=== PATIENT | female | born 1965 | race Caucasian/White ===

== ENCOUNTER → 2017-12-26 | Outpatient (CLI) | payer BC | LOC: LAB 18:05 → LAB SHORT 18:05 | DX: R82.90 Unspecified abnormal findings in urine (principal) | CPT/HCPCS: 87077; 87086; 87186 ==

== ENCOUNTER → 2018-01-07 | Outpatient (CLI) | payer BC | END | disposition home or self-care (01) | LOC: LAB SHORT 13:27 → LAB 13:27 | DX: N30.10 Interstitial cystitis (chronic) without hematuria (principal); R82.90 Unspecified abnormal findings in urine | CPT/HCPCS: 87086 ==

== ENCOUNTER → 2018-01-24 | Outpatient (CLI) | payer BC | LOC: LAB SHORT 16:46 → LAB 16:46 | DX: R39.15 Urgency of urination (principal) | CPT/HCPCS: 87077; 87086; 87186 ==

== ENCOUNTER → 2018-02-19 | Outpatient (CLI) | payer BC ==
[2018-02-19 09:57] LABS: Source, Urine Clean Catch
[2018-02-19 13:09] LABS: Bilirubin, Urine Neg (Neg); Blood, Urine Neg (Neg); Glucose Qualitative, Urine Neg (Neg); Ketones, Urine Neg (Neg); Leukocyte Esterase, Urine Neg (Neg); Nitrite, Urine Neg (Neg); Protein, Urine Neg (Neg); Specific Gravity, Urine 1.005 (1.003-1.022); Urobilinogen, Urine NORM (Normal)
[2018-02-19 13:25] LABS: Appearance, Urine Clear (Clear); Color, Urine Yellow (P-Yellow)
== END | disposition home or self-care (01) ==
LOC: LAB 09:46 → LAB SHORT 09:46
PROVIDERS: Obstetrics & Gynecology
DX: R33.9 Retention of urine, unspecified (principal)
CPT/HCPCS: 81003

== ENCOUNTER → 2019-02-10 | Outpatient (CLI) | payer BC ==
[2019-02-12 13:07] LABS: HPV 16 Negative (Negative); HPV 18 Negative (Negative); HPV OTHER HR TYPES Negative (Negative)
== END | disposition home or self-care (01) ==
LOC: LAB SHORT 11:47 → LAB 11:47
PROVIDERS: Obstetrics & Gynecology
DX: Z01.419 Encounter for gynecological examination (general) (routine) without abnormal findings (principal)
CPT/HCPCS: 87624; G0123

== ENCOUNTER → 2019-03-17 | Outpatient (CLI) | payer BC | END | disposition home or self-care (01) | LOC: LAB SHORT 18:21 → LAB 18:21 | DX: R39.15 Urgency of urination (principal); R33.9 Retention of urine, unspecified | CPT/HCPCS: 87086 ==

== ENCOUNTER → 2019-03-24 | Outpatient (CLI) | payer BC ==
[2019-03-24 18:20] LABS: Appearance, Urine Clear (Clear); Bilirubin, Urine Neg (Neg); Blood, Urine Neg (Neg); Color, Urine Yellow (P-Yellow); Glucose Qualitative, Urine Neg (Neg); Ketones, Urine Neg (Neg); Leukocyte Esterase, Urine Neg (Neg); Nitrite, Urine Neg (Neg); Protein, Urine Neg (Neg); Urobilinogen, Urine NORM (Normal)
== END | disposition home or self-care (01) ==
LOC: LAB SRC 14:50 → LAB SHORT 14:50
PROVIDERS: Registered Nurse
DX: R33.9 Retention of urine, unspecified (principal); R30.0 Dysuria
CPT/HCPCS: 81003

== ENCOUNTER → 2021-07-28 | Outpatient (CLI) | payer BC | END | disposition home or self-care (01) | LOC: LAB SHORT 11:35 | DX: N30.90 Cystitis, unspecified without hematuria (principal) | CPT/HCPCS: 87077; 87086; 87186 ==

== ENCOUNTER → 2021-08-03 | Outpatient (CLI) | payer BC | END | disposition home or self-care (01) | LOC: LAB 14:29 → LAB SHORT 14:29 | DX: R30.0 Dysuria (principal) | CPT/HCPCS: 87086 ==

== ENCOUNTER 2021-12-26 07:20 | Day surgery (SDC) | payer BC ==
[~2021-12-26] VITALS: Ht 160 cm; Wt 73.8 kg
[2021-12-26] MEDS ORDERED: ALGAL OMEGA-3200 MG PO (07:58)
[2021-12-26] MEDS ORDERED: METF500 PO (07:59)
[2021-12-26] MEDS ORDERED: THYROID PO ×2 (07:59→08:00)
[2021-12-26] MEDS ORDERED: Ventolin/Prove6.7 GM INH (08:00)
--- NOTE | 2021-12-26 11:11 | NUR ---
PT BROUGHT BACK FROM PROCEDURE TO RECOVERY ROOM VIA RECLINER, TR BAND ON RIGHT WRIST, AIR IN, ARM BOARD FOR SUPPORT. SITE SOFT NON TENDER WITH NO ACTIVE BLEEDING, OOZING, OR PAIN. PT AOX4, TOLERATED PO FLUIDS WITH NO DIFFICULTIES. VSS. CALL LIGHT IN REACH. WILL CONTINUE TO MONITOR.
--- NOTE | 2021-12-26 12:44 | NUR ---
TR BAND FULLY DEFLATED, SITE SOFT NON TENDER WITH NO BLEEDING OR OOZING NOTED. AMBULATED TO RESTROOM WITH STEADY GAIT. NO CHEST PAIN OR SOB. GETS DRESSED WITH NO NEEDED ASSISTANCE. VERBALIZED UNDERSTANDING OF D/C INSTRUCTIONS. PAPERWORK PLACED IN FOLDER TO TAKE HOME.
--- NOTE | 2021-12-26 13:05 | NUR ---
TR BAND REMOVED AND SITE CLEANSED. R RADIAL SITE STABLE, CLOTH DOT PLACED AND ARM BOARD PLACED. PT INSTRUCTED TO LEAVE ARMBOARD IN PLACE FOR 2 DAYS. PT R ARM PLACED IN A SLING. SALINE LOCK REMOVED WITH CATHETER INTACT. PT TO PRIVATE VEHICLE PER W/C.
== END 2021-12-26 13:00 | disposition home or self-care (01) ==
LOC: MHTC 07:20
DX: I20.9 Angina pectoris, unspecified (principal); R94.39 Abnormal result of other cardiovascular function study; R06.00 Dyspnea, unspecified; R42 Dizziness and giddiness; E03.9 Hypothyroidism, unspecified; E11.9 Type 2 diabetes mellitus without complications; E78.5 Hyperlipidemia, unspecified; Z88.8 Allergy status to other drugs, medicaments and biological substances; Z87.891 Personal history of nicotine dependence
CPT/HCPCS: 76937; 93454; 99152; C1769; C1887; C1894; J1644; J2250; J3010; J7030; J7040; Q9967

== ENCOUNTER → 2022-03-14 | Outpatient (CLI) | payer BC ==
[~2022-03-14] MED LIST: ALGAL OMEGA-3200 MG PO; METF500 PO; THYROID PO; Ventolin/Prove6.7 GM INH
== END | disposition home or self-care (01) ==
LOC: LAB SHORT 13:48 → LAB 13:48
DX: R39.15 Urgency of urination (principal)
CPT/HCPCS: 87086

== ENCOUNTER → 2022-03-15 | Outpatient (CLI) | payer BC ==
[2022-03-21 10:11] LABS: HPV 16 Negative (Negative); HPV 18 Negative (Negative); HPV OTHER HR TYPES Negative (Negative)
== END | disposition home or self-care (01) ==
LOC: LAB 11:53 → LAB SHORT 11:53
PROVIDERS: Advanced Practice Midwife
DX: Z01.419 Encounter for gynecological examination (general) (routine) without abnormal findings (principal)
CPT/HCPCS: 87624; G0123

== ENCOUNTER → 2022-10-31 | Outpatient (CLI) | payer BC ==
[2022-11-02 08:03] LABS: Stool Occult Bld Immuno 1 Negative (NEGATIVE)
== END ==
LOC: LAB 07:17 → LAB SHORT 07:17
PROVIDERS: Physician Assistant
DX: Z12.11 Encounter for screening for malignant neoplasm of colon (principal)
CPT/HCPCS: G0328

== ENCOUNTER → 2023-06-06 | Outpatient (CLI) | payer BC | END | disposition home or self-care (01) | LOC: LAB SHORT 11:07 → LAB 11:07 | DX: R30.0 Dysuria (principal) | CPT/HCPCS: 87086 ==

== ENCOUNTER 2024-11-22 16:44 | Emergency (ER) | payer BC ==
[~2024-11-22] VITALS: Ht 160 cm; Wt 69.4 kg
[2024-11-22 17:27] LABS: BASOPHILS ABSOLUTE AUTO 0.03 K/mm3 (0.00-0.23); BASOPHILS PERCENT AUTO 1 % (0-2); EOSINOPHILS ABSOLUTE AUTO 0.08 K/mm3 (0.00-0.68); EOSINOPHILS PERCENT AUTO 1 % (0-6); Hematocrit 39.1 % (33.0-51.0); Hemoglobin 13.1 g/dL (11.5-16.0); IMMATURE GRAN ABSOLUTE AUTO 0.02 K/mm3 (0.00-0.10); IMMATURE GRAN PERCENT AUTO 0 % (0-1); LYMPHOCYTES ABSOLUTE AUTO 2.59 K/mm3 (0.84-5.20); LYMPHOCYTES PERCENT AUTO 43 % (21-46); MONOCYTES ABSOLUTE AUTO 0.58 K/mm3 (0.16-1.47); MONOCYTES PERCENT AUTO 10 % (4-13); Mean Corpuscular HGB Conc 33.5 g/dL (31.5-36.5); Mean Corpuscular Volume 93 fL (80-100); Mean Platelet Volume 10.2 fL (9.1-12.4); NEUTROPHILS ABSOLUTE AUTO 2.79 K/mm3 (1.96-9.15); NEUTROPHILS PERCENT AUTO 46 % (41-73); Platelet Count 199 K/mm3 (150-400); Red Blood Cell Count 4.22 M/mm3 (3.80-5.20); White Blood Cell Count 6.09 K/mm3 (4.00-11.30)
[2024-11-22] MEDS ORDERED: CALCIUM CARBONATE 1250 MG/5 ML PO ONE (17:40)
[2024-11-22 17:45] LABS: Albumin, Blood 4.1 g/dL (3.4-5.0); Albumin/Globulin Ratio 1.2 (0.8-1.8); Bilirubin, Total 0.2 mg/dL (0.1-1.0); Bun/Creatinine Ratio 21.7 (12.0-20.0); Calcium, Blood 9.5 mg/dL (8.5-10.1); Creatinine, Blood 0.78 mg/dL (0.40-1.00); Globulin, Blood 3.3 g/dL (2.2-4.0); Potassium, Blood 3.7 mmol/L (3.5-5.5); Total Protein, Blood 7.4 g/dL (6.4-8.2)
[2024-11-22] MEDS ORDERED: [UNRECOGNIZED DRUG - OTHER] XX ONE (17:45)
[2024-11-22] MEDS ORDERED: CALCIUM CARBONATE 1250 MG/5 ML XX ONE (17:45)
[2024-11-22 20:57] VITALS: BP 121/84
== END 2024-11-22 20:57 | disposition home or self-care (01) ==
LOC: ER 16:44
PROVIDERS: Student in an Organized Health Care Education/Training Program
DX: T54.2X1A Toxic effect of corrosive acids and acid-like substances, accidental (unintentional), initial encounter (principal); L98.8 Other specified disorders of the skin and subcutaneous tissue; E03.9 Hypothyroidism, unspecified; Z88.8 Allergy status to other drugs, medicaments and biological substances; Z88.1 Allergy status to other antibiotic agents; Z79.84 Long term (current) use of oral hypoglycemic drugs; Z79.890 Hormone replacement therapy; Z79.899 Other long term (current) drug therapy
CPT/HCPCS: 80053; 82330; 85025; 93005; 93010; 99283-25; A9270